=== PATIENT | female | born 1975 | race Two or more races ===

== ENCOUNTER 2021-05-30 18:16 | Emergency (ER) | payer SELFPAY | END 2021-05-30 19:00 | disposition left against medical advice (07) | LOC: ER 18:16 | DX: M79.602 Pain in left arm (principal); G89.11 Acute pain due to trauma; Z53.21 Procedure and treatment not carried out due to patient leaving prior to being seen by health care provider; V49.88XA Car occupant (driver) (passenger) injured in other specified transport accidents, initial encounter; Y93.89 Activity, other specified; Y92.488 Other paved roadways as the place of occurrence of the external cause; Y99.8 Other external cause status ==